=== PATIENT | male | born 1975 ===

== ENCOUNTER 2022-09-23 18:31 | Emergency (ER) | payer OTHER, SELFPAY ==
[2022-09-23] VITALS (7 sets, daily range): BP systolic 127–151; BP diastolic 74–89; PULSE 59–71; RESP 13–19; TEMP 37.1; O2SAT 97–100; BMI 36.6
--- NOTE | 2022-09-23 18:39 | DI.RAD.S_ITS ---
PROCEDURE: XR CHEST 1V INDICATIONS: chest pain TECHNIQUE: One view of the chest was acquired. COMPARISON: None. FINDINGS: Surgical changes and devices: None. Lungs and pleura: Lungs are clear. No pleural effusions or pneumothorax. Mediastinum: Mediastinal contours appear normal. Heart size is normal. Bones and chest wall: No suspicious bony lesions. Overlying soft tissues appear unremarkable. IMPRESSION: No acute cardiopulmonary process. Dictated by: Ady Tinoco M.D. on 09/23/2022 at 19:48 Approved by: Ady Tinoco M.D. on 09/23/2022 at 19:49
[2022-09-23 19:30] LABS: Add Manual Diff / Slide Review NO; Basophils Absolute Auto 0 /uL (0-100); Basophils Percent Auto 0.3 % (0-2); Eosinophils Absolute Auto 100 /uL (0-450); Eosinophils Percent Auto 1.5 % (2-4); Hematocrit 41.2 % (41-53); Hemoglobin 14.6 g/dL (13.5-17.5); Lymphocytes Absolute Auto 2900 /uL (1100-4500); Lymphocytes Percent Auto 41.1 % (25-40); Mean Corpuscular HGB Conc 35.5 % (30-36); Mean Corpuscular Hemoglobin 30.4 PG (26-34); Mean Corpuscular Volume 85.8 fL (80-100); Monocytes Absolute Auto 500 /uL (0-900); Monocytes Percent Auto 7.5 % (3-14); Neutrophils Absolute Auto 3500 /uL (1500-7000); Neutrophils Percent Auto 49.6 % (50-75); Platelet Count 202 X10^3/uL (150-400); Red Cell Distribution Width 12.1 % (11.6-14.8); White Blood Cell Count 7.1 X10^3/uL (4.5-11.0)
[2022-09-23 19:41] LABS: INR 0.9 (0.9-1.3); Prothrombin Time 10.4 SECONDS (10.1-12.7)
[2022-09-23 19:44] LABS: PTT Partial Thromboplastin Tim 32 SECONDS (26-36)
[2022-09-23 19:47] LABS: Alanine Aminotransferase 31 IU/L (<50); Albumin 4.4 g/dL (3.5-5.0); Albumin Globulin Ratio 1.2 (1.0-2.8); Alkaline Phosphatase 102 U/L (38-126); Aspartate Aminotransferase 31 IU/L (17-59); BUN Creatinine Ratio 14.5 (6-22); Bilirubin Total 0.6 mg/dL (0.2-1.3); Blood Urea Nitrogen 12 mg/dL (9-20); Carbon Dioxide 29 mmol/L (22-32); Chloride 101 mmol/L (98-107); Creatine Kinase 181 U/L (55-170); Estimated Glomerular Filt Rate > 60 mL/min (>60); Globulin 3.8 g/dL (1.7-4.1); Glucose 126 mg/dL (70-100); HEMOLYSIS 45 (0-50); Lipase 135 U/L (23-300); Magnesium 1.9 mg/dL (1.6-2.3); Sodium 138 mmol/L (137-145); Total Protein 8.2 g/dL (6.3-8.2)
[2022-09-23 19:56] LABS: Troponin I < 0.012 ng/mL (0.01-0.034)
[2022-09-23 21:21] LABS: Troponin I < 0.012 ng/mL (0.01-0.034)
--- NOTE | 2022-09-23 21:43 | ED_ITS ---
HPI - Chest Pain General Chief Complaint: Chest Pain Stated Complaint: LT SIDE CHEST PAINS Time Seen by Provider: 09/23/22 21:42 Source: patient Mode of arrival: Ambulatory History of Present Illness HPI narrative: Patient is a 46-year-old male history of hypertension on lisinopril presenting today left-sided chest pain. He reports that he was feeling sharp stabbing pains in left pectoral muscle. Can not reproduce it has happened at rest. Does not seem to last more than a few seconds at a time. It is nonradiating. He is no shortness of breath. No known coronary artery disease. His father has had multiple MIs possibly before the age of 60 or right at. 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 He also admits to vaping but not smoking. Related Data Allergies Allergy/AdvReac Type Severity Reaction Status Date / Time No Known Drug Allergies Allergy Verified 09/23/22 18:34 Review of Systems Review of Systems ROS Unobtainable: All systems reviewed & are unremarkable except as noted in HPI and below Patient History tobacco type: vaping Substance Use Type: does not use Exam Initial Vital Signs Initial Vital Signs: Vital Signs Temperature 98.8 F 09/23/22 18:34 Pulse Rate 71 09/23/22 18:34 Respiratory Rate 16 09/23/22 18:34 Blood Pressure 151/89 H 09/23/22 18:34 Pulse Oximetry 99 09/23/22 18:34 Oxygen Delivery Method Room Air 09/23/22 18:34 GENERAL: Alert pleasant 46-year-old male and in no acute distress. HEENT: Head atraumatic,EOMI, pupils reactive, face symmetric, moist mucous membranes CARDIOVASCULAR: Regular rate and rhythm without murmurs, rubs or gallops. Pain is nonreproducible. RESPIRATORY: Breath sounds equal bilaterally, no wheezes rales or rhonchi. ABDOMEN: Soft, nontender. Normoactive bowel sounds all 4 quadrants. No guarding or rebound. EXTREMITIES: Normal range of motion, no clubbing or edema. Neurovascularly intact NEUROLOGICAL: Alert and oriented x4.Normal gait and speech. SKIN: Warm, dry, no laceration, no petechiae, no rashes or lesions. Scores HEART Score Heart Score history: Slightly Suspicious Heart Score EKG: Normal Heart Score Age: < 45 years old Heart Score risk factors: No known risk factors Course Orders Ordered: ED Orders 09/23/22 20:50 Trop I [Troponin I] Stat Discontinued Medications Aspirin (Aspirin 81 Mg Chew Tab) 324 mg PO NOW ONE Stop: 09/23/22 18:40 Last Admin: 09/23/22 21:25 Dose: Not Given Documented By: CIERRA Vital Signs Vital signs: Vital Signs - 8 hr 09/23/22 20:38 09/23/22 20:39 09/23/22 20:39 Pulse Rate 65 65 Respiratory Rate 13 18 Blood Pressure 139/84 Pulse Oximetry 100 99 09/23/22 21:00 09/23/22 21:00 09/23/22 21:30 Pulse Rate 60 Respiratory Rate 14 Blood Pressure 129/79 127/74 Pulse Oximetry 99 09/23/22 21:30 09/23/22 22:00 09/23/22 22:00 Pulse Rate 59 L 59 L Respiratory Rate 15 19 Blood Pressure 133/81 Pulse Oximetry 97 97 09/23/22 22:01 09/23/22 22:01 Pulse Rate 59 L Respiratory Rate 16 Blood Pressure 129/77 Pulse Oximetry 97 MDM - Chest Pain Lab Data 09/23/22 18:45 09/23/22 18:45 Labs: Lab Results 09/23/22 09/23/22 09/23/22 Range/Units 18:45 18:45 18:45 WBC 7.1 (4.5-11.0) X10^3/uL RBC 4.80 (4.5-5.9) X10^6/uL Hgb 14.6 (13.5-17.5) g/dL Hct 41.2 (41-53) % MCV 85.8 (80-100) fL MCH 30.4 (26-34) PG MCHC 35.5 (30-36) % RDW 12.1 (11.6-14.8) % Plt Count 202 (150-400) X10^3/uL Neut % (Auto) 49.6 L (50-75) % Lymph % (Auto) 41.1 H (25-40) % Orange % (Auto) 7.5 (3-14) % Eos % (Auto) 1.5 L (2-4) % Baso % (Auto) 0.3 (0-2) % Neut # (Auto) 3500 (3560-5078) /uL Lymph # (Auto) 2900 (8317-2621) /uL Orange # (Auto) 500 (0-900) /uL Eos # (Auto) 100 (0-450) /uL Baso # (Auto) 0 (0-100) /uL PT 10.4 (10.1-12.7) SECONDS INR 0.9 (0.9-1.3) APTT 32 (26-36) SECONDS Sodium 138 (137-145) mmol/L Potassium 4.0 (3.4-5.1) mmol/L Chloride 101 (98-107) mmol/L Carbon Dioxide 29 (22-32) mmol/L BUN 12 (9-20) mg/dL Creatinine 0.83 (0.66-1.25) mg/dL Estimated GFR > 60 (>60) mL/min BUN/Creatinine Ratio 14.5 (6-22) Glucose 126 H (70-100) mg/dL Calcium 9.0 (8.4-10.2) mg/dL Magnesium 1.9 (1.6-2.3) mg/dL Total Bilirubin 0.6 (0.2-1.3) mg/dL AST 31 (17-59) IU/L ALT 31 (<50) IU/L Alkaline Phosphatase 102 (38-126) U/L Total Creatine Kinase 181 H (55-170) U/L Troponin I < 0.012 (0.01-0.034) ng/mL Total Protein 8.2 (6.3-8.2) g/dL Albumin 4.4 (3.5-5.0) g/dL Globulin 3.8 (1.7-4.1) g/dL Albumin/Globulin Ratio 1.2 (1.0-2.8) Lipase 135 (23-300) U/L 09/23/22 Range/Units 20:50 WBC (4.5-11.0) X10^3/uL RBC (4.5-5.9) X10^6/uL Hgb (13.5-17.5) g/dL Hct (41-53) % MCV (80-100) fL MCH (26-34) PG MCHC (30-36) % RDW (11.6-14.8) % Plt Count (150-400) X10^3/uL Neut % (Auto) (50-75) % Lymph % (Auto) (25-40) % Orange % (Auto) (3-14) % Eos % (Auto) (2-4) % Baso % (Auto) (0-2) % Neut # (Auto) (8719-9299) /uL Lymph # (Auto) (9244-1976) /uL Orange # (Auto) (0-900) /uL Eos # (Auto) (0-450) /uL Baso # (Auto) (0-100) /uL PT (10.1-12.7) SECONDS INR (0.9-1.3) APTT (26-36) SECONDS Sodium (137-145) mmol/L Potassium (3.4-5.1) mmol/L Chloride (98-107) mmol/L Carbon Dioxide (22-32) mmol/L BUN (9-20) mg/dL Creatinine (0.66-1.25) mg/dL Estimated GFR (>60) mL/min BUN/Creatinine Ratio (6-22) Glucose (70-100) mg/dL Calcium (8.4-10.2) mg/dL Magnesium (1.6-2.3) mg/dL Total Bilirubin (0.2-1.3) mg/dL AST (17-59) IU/L ALT (<50) IU/L Alkaline Phosphatase (38-126) U/L Total Creatine Kinase (55-170) U/L Troponin I < 0.012 (0.01-0.034) ng/mL Total Protein (6.3-8.2) g/dL Albumin (3.5-5.0) g/dL Globulin (1.7-4.1) g/dL Albumin/Globulin Ratio (1.0-2.8) Lipase (23-300) U/L Imaging Data Chest x-ray: Radiologist's Impression: PROCEDURE:? XR CHEST 1V ? INDICATIONS:? chest pain ? TECHNIQUE:? One view of the chest was acquired.? ? COMPARISON:? None. ? FINDINGS:? ? Surgical changes and devices:? None.? ? Lungs and pleura:? Lungs are clear.? No pleural effusions or pneumothorax.? ? Mediastinum:? Mediastinal contours appear normal.? Heart size is normal.? ? Bones and chest wall:? No suspicious bony lesions.? Overlying soft tissues appear unremarkable.? ? IMPRESSION:? No acute cardiopulmonary process. ? ? ? Dictated by: Ady Tinoco M.D. on 09/23/2022 at 19:48 ? ? Approved by: Ady Tinoco M.D. on 09/23/2022 at 19:49 ? ECG Data Interpretation: Normal sinus rhythm rate 68 [place] interval once 86 QRS [address] changes no T-wave inversions MDM Narrative Medical decision making narrative: Patient 46-year-old male history of hypertension presenting today with left- sided chest pain. Sharp stabbing pain lasting only seconds not consistent with acute coronary syndrome. 2- troponins normal EKG. He has been moving fireworks I suspect more of musculoskeletal. Blood work is overall reassuring chest x-ray does not show any abnormality. He has recently moved big heavy boxes of [employer] I think that this is related. We discussed how he does have family risk factor and hypertension however he continues to have a low risk heart score and can have outpatient testing. Discharge Plan Departure Patient Disposition: Home Clinical Impression: Atypical chest pain Instructions: DI for Atypical Chest Pain, DI for Costochondritis Activity Restrictions/Additional Instructions: *You have been diagnosed with atypical chest pain *What to do: I suspect that this is more of a musculoskeletal problem. I do strongly recommend that you have an outpatient stress test and see your provider about this. Try icing and supportive care. No heavy lifting. *Continue to take medications as directed Motrin 600 mg every 6 hours if needed for [id number] pain Tylenol 650 mg every 6 hours if needed for [id number] *Follow up with your primary care provider in 2-3 days or call [phone] *Return to ER if you should have increasing chest pain shortness of breath radiation of pain or any new, worsening or concerning symptoms Stand Alone Forms: Patient Portal/API
== END 2022-09-23 22:08 | disposition home or self-care (01) ==
PROVIDERS: Emergency Provider Emergency Medicine
DX: R07.89 Other chest pain (principal)
CPT/HCPCS: 36415; 71045; 80053; 82550; 83690; 83735; 84484; 85025; 85610; 85730; 93005; 93010; 99283